=== PATIENT | female | born 1965 | race Caucasian/White ===

== ENCOUNTER 2017-01-21 11:16 | Emergency (ER) | payer OTHER ==
[~2017-01-21] VITALS: Ht 149.9 cm; Wt 52.3 kg
[2017-01-21] MEDS ORDERED: CELE20TA PO (11:37)
[2017-01-21] MEDS ORDERED: AUGM875T28 PO (12:36)
[2017-01-21] MEDS ORDERED: ADACEL/BOOSTRIX VACCINE (DIPHTH/PERTUSS/ACELL/TETANUS)0.5ML SYR (90715) IM ONE (12:45)
[2017-01-21 13:10] VITALS: BP 114/76
== END 2017-01-21 13:11 | disposition home or self-care (01) ==
LOC: M ED 11:16
DX: S01.551A Open bite of lip, initial encounter (principal); S01.05XA Open bite of scalp, initial encounter; W54.0XXA Bitten by dog, initial encounter; Y92.018 Other place in single-family (private) house as the place of occurrence of the external cause; Y93.89 Activity, other specified; Y99.8 Other external cause status; F41.9 Anxiety disorder, unspecified; K50.90 Crohn's disease, unspecified, without complications; Z79.899 Other long term (current) drug therapy

== ENCOUNTER → 2017-11-08 | Outpatient (CLI) | payer OTHER | LOC: M RAD 08:53 | DX: Z12.31 Encounter for screening mammogram for malignant neoplasm of breast (principal); Z85.3 Personal history of malignant neoplasm of breast; N60.31 Fibrosclerosis of right breast; N60.32 Fibrosclerosis of left breast | CPT/HCPCS: 77067 ==